=== PATIENT | male | born 1975 | race Caucasian/White ===

== ENCOUNTER 2017-08-01 23:03 | Emergency (ER) | payer MEDICAID ==
[~2017-08-01] VITALS: Ht 170.2 cm; Wt 72.6 kg
--- NOTE | 2017-08-02 01:08 | NUR ---
Patient discharged to home in stable conditon. Written and verbal after care instructions given. Patient verbalizes understanding of instructions.
== END 2017-08-02 01:08 | disposition home or self-care (01) ==
LOC: ER 23:06
DX: M54.9 Dorsalgia, unspecified (principal); Z87.442 Personal history of urinary calculi
CPT/HCPCS: 72128; 93005; 99284; A4663

== ENCOUNTER 2017-10-07 12:46 | Emergency (ER) | payer MEDICAID ==
--- NOTE | 2017-10-07 12:55 | NUR ---
attempted to triage pt, no response from ED waiting room.
--- NOTE | 2017-10-07 13:06 | NUR ---
per bingo clerk, pt decided to leave withouth beeing traiged or seen by .
== END 2017-10-07 13:08 | disposition left against medical advice (07) ==
LOC: ER 12:46
DX: Z53.21 Procedure and treatment not carried out due to patient leaving prior to being seen by health care provider (principal)

== ENCOUNTER 2018-05-24 18:49 | Emergency (ER) | payer MEDICAID ==
[~2018-05-24] VITALS: Ht 170.2 cm; Wt 72.6 kg
[2018-05-24] MEDS ORDERED: HYDROCODONE/APAP 10-325 MG TABLET ONE (19:23)
[2018-05-24] MEDS ORDERED: ONDANSETRON ODT 4 MG TAB.RAPDIS ONE (19:23)
[2018-05-24] MEDS ORDERED: DEXAMETHASONE SOD PHOSPHATE 10 MG INJ ONE (19:23)
[2018-05-24] MEDS: HYDROCODONE/APAP 10-325 MG TABLET PO ONE (19:28)
[2018-05-24] MEDS: DEXAMETHASONE SOD PHOSPHATE 4 MG INJ IM ONE (19:28)
[2018-05-24] MEDS: ONDANSETRON ODT 4 MG TAB.RAPDIS SL ONE (19:28)
--- NOTE | 2018-05-24 19:29 | NUR ---
Xray at bedside.
--- NOTE | 2018-05-24 19:48 | NUR ---
Patient discharged to home in stable conditon. Written and verbal after care instructions given. Patient verbalizes understanding of instructions. Pt ambulated out of ER in steady gait accompanied by who will drive home. All belongings with pt. VSS. NAD noted.
[2018-05-24 19:49] VITALS: BP 126/79
== END 2018-05-24 19:49 | disposition home or self-care (01) ==
LOC: ER 18:51
DX: M72.2 Plantar fascial fibromatosis (principal)
CPT/HCPCS: 73630; A4663; J1100; Q0162

== ENCOUNTER 2025-06-27 09:58 | Emergency (ER) | payer MEDICAID, OTHER ==
[~2025-06-27] VITALS: Ht 172.7 cm; Wt 68.9 kg
[2025-06-27] MEDS ORDERED: TRANEXAMIC ACID 1,000 MG/10 ML VIAL ONE (10:44)
[2025-06-27 10:53] LABS: CREATININE 0.9 mg/dL (0.6-1.3); PLATELET COUNT (AUTO) 925 K/uL (152-348); RED BLOOD CELL COUNT(AUTO) 2.93 MIL/uL (4.06-5.63); RED CELL DISTRIBUTION WIDTH 20.5 % (12.1-16.2); SODIUM SERUM 142 mmol/L (136-145); UREA NITROGEN, BLOOD 20 mg/dL (7-18); WHITE BLOOD COUNT (AUTO) 20.2 K/uL (3.6-10.2)
[2025-06-27] MEDS: IV NORMAL SALINE 1000 ML BAG IV ONE (10:54)
[2025-06-27] MEDS: TRANEXAMIC ACID 1,000 MG/10 ML VIAL IR ONE (10:57)
[2025-06-27 10:59] LABS: ASPARTATE AMINOTRANSFERASE 59 U/L (15-37); TOTAL PROTEIN, SERUM 8.4 g/dL (6.4-8.2)
[2025-06-27 11:02] VITALS: BP 115/74
[2025-06-27] MEDS ORDERED: IBUPROFEN 800 MG TABLET ONE (11:11)
[2025-06-27] MEDS: IBUPROFEN 800 MG TABLET PO ONE (11:20)
[2025-06-27 11:55] LABS: BAND % (MANUAL) 2 % (0-10); NEUTROPHILS % (MANUAL) 30 % (42-75); NUCLEATED RED BLOOD CELLS 130.0 /100WBC
[2025-06-27 11:56] LABS: LYMPHOCYTES % (MANUAL) 36 % (20-40); METAMYELOCYTES % 6 % (0-1); MONOCYTES % (MANUAL) 22 % (2-10); MYELOCYTES % 4 % (0-0); PLATELET ESTIMATE MARKED INCREASED
[2025-06-27 12:22] VITALS: BP 115/74; TEMP 97.7; O2SAT 99
== END 2025-06-27 12:23 | disposition home or self-care (01) ==
LOC: ER 09:58
DX: K91.841 Postprocedural hemorrhage of a digestive system organ or structure following other procedure (principal); D75.81 Myelofibrosis; Z90.81 Acquired absence of spleen; Z94.81 Bone marrow transplant status
CPT/HCPCS: 36415; 70030-TC; 84484; 85610; 86850; 86900; 86901; A4606; A4663